=== PATIENT | female | born 1990 | race Two or more races ===

== ENCOUNTER 2025-04-12 00:21 | Inpatient (IN) | payer MEDICAID ==
[2025-04-12] MEDS ORDERED: Carboprost Tromethamine 250 MCG/1 mL Vial IM PRN (11:20)
[2025-04-12] MEDS ORDERED: Butorphanol 1 MG/ML SDV IVPUSH PRN (11:20)
[2025-04-12] MEDS ORDERED: Sodium Chloride 0.9% 2.5 ML Syringe FLUSH PRN (11:20)
[2025-04-12] MEDS ORDERED: Water For Irrigation,Sterile 1,000 ML Container IRR PRN (11:20)
[2025-04-12] MEDS ORDERED: Ondansetron 4 MG/2 ML SDV IVPUSH PRN (11:20)
[2025-04-12] MEDS ORDERED: Sodium Chloride 0.9% 10 ML Syringe FLUSH PRN (11:20)
[2025-04-12] MEDS ORDERED: Misoprostol 25 MCG (1/4 of 100 MCG) Tab PO PRN (11:23)
[2025-04-12] MEDS ORDERED: Misoprostol 25 MCG (1/4 of 100 MCG) Tab VAG PRN (11:23)
[2025-04-12] MEDS ORDERED: Terbutaline 1 MG/ML SDV SUBCUT PRN (11:23)
[2025-04-12] MEDS ORDERED: Oxytocin/0.9 % Sodium Chloride 30 UNIT/500 ML BAG IV SCH (11:30)
[2025-04-12 12:07] LABS: MEAN PLATELET VOLUME 11.4 fL (9.4-12.3); NRBC ABSOLUTE 0.00 K/uL (0.00-0.02); NRBC PERCENT 0.0 /100WBC (0.0-0.2); PLATELET COUNT,PLT 155 K/uL (150-400); RED BLOOD CELL COUNT 4.01 M/uL (4.10-5.30); WHITE BLOOD CELL COUNT,WBC 9.47 K/uL (3.9-11.3)
[2025-04-12] MEDS: Oxytocin/0.9 % Sodium Chloride 30 UNIT/500 ML BAG IV SCH (12:52)
[2025-04-12] MEDS: Lactated Ringers 1,000 ML IV SCH (12:52)
[2025-04-12] MEDS: Ropivacaine HCl/PF 400 MG in Premix Bag 1 BAG EPIDUR SCH (20:48)
[2025-04-12] MEDS ORDERED: ePHEDrine 50 MG/ML SDV IVPUSH PRN (21:11)
[2025-04-12] MEDS ORDERED: dexmedeTOMIDine HCl 200 MCG/2 ML SDV EPIDUR SCH (21:15)
[2025-04-13] MEDS ORDERED: Benzocaine/Menthol 20%-0.5% Spray 78 GM Cannister TOP PRN (00:42)
[2025-04-13] MEDS ORDERED: Aluminum Hydroxide/Magnesium Hydroxide/Simethicone Susp 30 ML Cup PO PRN (00:42)
[2025-04-13] MEDS ORDERED: Witch Hazel Medicated Pads 40/Jar TOP PRN (00:42)
[2025-04-13 01:07] LABS: PH,UMBILICAL ARTERIAL 7.37 (7.18-7.38); PH,UMBILICAL VENOUS 7.41 (7.25-7.45)
[2025-04-13] MEDS: Lanolin 100% Cream 7 GM Tube TOP PRN (04:19)
[2025-04-13 05:54] LABS: BASOPHILS ABSOLUTE AUTO 0.03 K/uL (0.00-0.20); BASOPHILS PERCENT AUTO 0.2 % (0.0-1.0); EOSINOPHILS ABSOLUTE AUTO 0.04 K/uL (0.00-0.45); EOSINOPHILS PERCENT AUTO 0.3 % (0.0-6.0); IMMATURE GRAN ABSOLUTE AUTO 0.05 K/uL (0.00-0.05); IMMATURE GRAN PERCENT AUTO 0.4 % (0.0-0.4); LYMPHOCYTES ABSOLUTE AUTO 2.02 K/uL (1.00-4.80); LYMPHOCYTES PERCENT AUTO 15.1 % (24.0-44.0); MEAN PLATELET VOLUME 11.3 fL (9.4-12.3); MONOCYTES ABSOLUTE AUTO 1.06 K/uL (0.00-0.80); MONOCYTES PERCENT AUTO 7.9 % (0.0-8.0); NEUTROPHILS ABSOLUTE AUTO 10.15 K/uL (1.80-7.70); NEUTROPHILS PERCENT AUTO 76.1 % (41.0-71.0); NRBC ABSOLUTE 0.00 K/uL (0.00-0.02); NRBC PERCENT 0.0 /100WBC (0.0-0.2); PLATELET COUNT,PLT 135 K/uL (150-400); RED BLOOD CELL COUNT 3.65 M/uL (4.10-5.30); WHITE BLOOD CELL COUNT,WBC 13.35 K/uL (3.9-11.3)
[2025-04-13] MEDS: dexmedeTOMIDine HCl 200 MCG/2 ML SDV ONE (08:23)
[2025-04-13] MEDS: Ropivacaine HCl/PF 200 ML ONE (08:57)
== END 2025-04-14 23:32 | disposition home or self-care (01) | DRG 805 ==
LOC: MW.OB 00:21 → OBSVTOIN 04-13 00:21 → MW.OB 04-13 04:12
PROVIDERS: ADMIT Obstetrics & Gynecology; ATTEND Obstetrics & Gynecology Obstetrics
PROC: 10E0XZZ Delivery of Products of Conception, External Approach (ICD-10-PCS; principal; 2025-04-13)
PROC: 3E0R3BZ Introduction of Anesthetic Agent into Spinal Canal, Percutaneous Approach (ICD-10-PCS; 2025-04-13)
PROC: 10907ZC Drainage of Amniotic Fluid, Therapeutic from Products of Conception, Via Natural or Artificial Opening (ICD-10-PCS; 2025-04-13)
PROC: 3E033VJ Introduction of Other Hormone into Peripheral Vein, Percutaneous Approach (ICD-10-PCS; 2025-04-13)
DX: O48.0 Post-term pregnancy (principal); O99.42 Diseases of the circulatory system complicating childbirth; Z37.0 Single live birth; Z3A.40 40 weeks gestation of pregnancy; O99.214 Obesity complicating childbirth; O99.02 Anemia complicating childbirth; Q18.4 Macrostomia; O36.8330 Maternal care for abnormalities of the fetal heart rate or rhythm, third trimester, not applicable or unspecified
CPT/HCPCS: 01967; 36415; 51702; 59025; 59409; 76815; 76815-26; 76819; 76819-26; 82803; 85025; 85027; 86592; 86850; 86900; 86901; A9270-GY; J0665; J2371; J2590; J2795; J7120